=== PATIENT | male | born 1995 | race African-American/Black ===

== ENCOUNTER 2023-08-05 07:31 | Emergency (ER) | payer SELFPAY, OTHER ==
[2023-08-05] MEDS ORDERED: HYDROcodone/Acetaminophen 5/325 mg Tablet ONE (08:43)
[2023-08-05] MEDS ORDERED: Boostrix 0.5 ML (Tdap) VIAL (>/=7 yrs of age) ONE (08:44)
[2023-08-05] MEDS ORDERED: Lidocaine 1% PF 5 ML VIAL ONE (10:32)
[2023-08-05] MEDS ORDERED: Bacitracin 1 PK ONE (10:54)
== END 2023-08-05 11:10 | disposition home or self-care (01) ==
LOC: CSHERS 07:31
DX: S61.411A Laceration without foreign body of right hand, initial encounter (principal); S60.312A Abrasion of left thumb, initial encounter; S60.411A Abrasion of left index finger, initial encounter; F17.290 Nicotine dependence, other tobacco product, uncomplicated; W22.8XXA Striking against or struck by other objects, initial encounter; Z23 Encounter for immunization
CPT/HCPCS: 12002; 90471; 90715

== ENCOUNTER 2023-08-15 16:56 | Emergency (ER) | payer OTHER, SELFPAY | END 2023-08-15 17:34 | disposition home or self-care (01) | LOC: CSHERS 16:56 | DX: S61.411D Laceration without foreign body of right hand, subsequent encounter (principal); F17.290 Nicotine dependence, other tobacco product, uncomplicated ==

== ENCOUNTER 2023-12-11 14:30 | Emergency (ER) | payer SELFPAY | END 2023-12-11 16:51 | disposition home or self-care (01) | LOC: CSHERS 14:30 | DX: K03.81 Cracked tooth (principal); F17.290 Nicotine dependence, other tobacco product, uncomplicated | CPT/HCPCS: 99282 ==